=== PATIENT | female | born 1935 | race Caucasian/White ===

== ENCOUNTER 2021-06-23 07:39 | Outpatient (CLI) | payer MEDICARE, OTHER ==
--- NOTE | 2021-06-23 08:56 | Ultrasound Report ---
PROCEDURE: Duplex Ext Veins Right INDICATIONS: RIGHT LOWER EXTREMITY PAIN, RIGHT SCIATICA TECHNIQUE: Real-time imaging, as well as color and pulse Doppler interrogation, were performed of the lower extr emity deep veins from the inguinal ligament to the popliteal fossa. COMPARISON: None. FINDINGS: The deep veins are normally compressible, and free of intraluminal thrombus. Color and pu lse Doppler demonstrate normal phasic intraluminal flow. There is normal augmentation response to di stal compression maneuver. IMPRESSION: No sonographic evidence of DVT. Reviewed by: Julio Cesar Tanner MD on 06/23/2021 8:55 AM PDT Approved by: Julio Cesar Tanner MD on 06/23/2021 8:55 AM PDT Station ID: [id number]
--- NOTE | 2021-06-23 10:53 | MRI Report ---
PROCEDURE: Lumbar Spine W/O INDICATIONS: RIGHT LOWER EXTREMITY PAIN, RIGHT SCIATICA TECHNIQUE: Noncontrast sagittal T1 spin echo and T2 fast echo, sagittal STIR, axial T1 and T2 fast spin echo thr ough the lumbar spine. In cases with scoliosis, additional coronal T2 fast spin echo may be performe d. COMPARISON: None. FINDINGS: Image quality: Motion artifact is noted. Alignment and Curvature: There is normal bony alignment. Bone Marrow: Marrow is of normal overall signal. No acute vertebral body compression fractures. Spinal Cord: Conus medullaris terminates at the L1 level. Visualized cord demonstrates normal signa l and size. Paraspinous Soft Tissues: No paravertebral masses. Several bilateral renal cysts are seen, includin g a large right lateral renal cyst that measures 7 cm. T12-L1: The disc height is well-preserved. There is loss of disc signal seen. Minimal disc bulge can be seen. No neuroforaminal or central canal narrowing can be seen. L1-L2: The disc height is well-preserved. There is loss of disc signal seen. Mild disc bulge is se en, which is eccentric to the left. There is mild to moderate facet hypertrophy seen. Moderate left-s ided and minimal right-sided neuroforaminal narrowing can be seen. No central canal narrowing is seen . L2-L3: The disc height is well-preserved. There is loss of disc signal seen. Mild to moderate disc bulge is seen, which is eccentric to the left. Mild to moderate facet hypertrophy is seen. There is mild left-sided and no right-sided neuroforaminal narrowing seen. Minimal central canal narrowing is seen. L3-L4: The disc height is well-preserved. There is loss of disc signal seen. Moderate disc bulge i s seen at this level. Moderate facet hypertrophy is seen. There is moderate left-sided and moderat e to severe right-sided neuroforaminal narrowing seen. There is a mild degree of compression seen upo n the exiting right L3 nerve root. Moderate central canal narrowing is seen. L4-L5: Mild to moderate loss of disc height and disc signal can be seen. Moderate disc bulge is see n, which is eccentric to the right. There is a right foraminal disc extrusion seen, with superior lurdes ration of the disc material, as on series 701 image 10 and on series 501 image 12. At least moderate facet hypertrophy is seen. There is severe right-sided and moderate to severe left-sided neuroforamin al narrowing seen. Compression is seen upon the exiting nerve roots. Moderate to severe central joy l narrowing is seen. L5-S1: At least moderate loss of disc height and disc signal can be seen. Reactive marrow endplate changes are seen, which are hyperintense on T1-weighted and T2-weighted imaging, without significant increased STIR signal. 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 Moderate disc bulge is seen at this level. Moderate facet hypertrophy is seen. There is moderate to severe bilateral neuroforaminal narrowing seen, right worse than left. Compression is seen upon the exiting nerve roots. Minimal central canal narrowing is seen. IMPRESSION: Multiple levels of lumbar spine degenerative change are seen, which are worst at the L4- L5 level. At this level, there is a right foraminal disc extrusion, with associated severe right-side d neuroforaminal narrowing. Incidental note is made of: Bilateral renal cysts, including a 7 mm right renal cyst laterally Reviewed by: Hami Liang MD on 06/23/2021 9:52 AM [facility] Approved by: Haim Liang MD on 06/23/2021 9:52 AM [place] Station ID: [id number]
== END 2021-06-23 07:40 | disposition home or self-care (01) ==
LOC: DI 07:39
PROVIDERS: ATTEND Internal Medicine
DX: M79.661 Pain in right lower leg (principal); M47.816 Spondylosis without myelopathy or radiculopathy, lumbar region; M48.061 Spinal stenosis, lumbar region without neurogenic claudication; M51.36 Other intervertebral disc degeneration, lumbar region; M51.26 Other intervertebral disc displacement, lumbar region; M51.37 Other intervertebral disc degeneration, lumbosacral region; M48.07 Spinal stenosis, lumbosacral region; M47.817 Spondylosis without myelopathy or radiculopathy, lumbosacral region

== ENCOUNTER 2022-02-23 08:00 | Outpatient (CLI) | payer MEDICARE, OTHER ==
[2022-02-23 16:14] LABS: BASOPHILS % (AUTO) 0.2 %; EOSINOPHILS # (AUTO) 0.1 10^3/uL (0.0-0.7); EOSINOPHILS % (AUTO) 1.1 %; HCT - HEMATOCRIT 43.2 % (37.0-47.0); HGB - HEMOGLOBIN 13.7 g/dL (12.0-16.0); LYMPHOCYTES # (AUTO) 2.2 10^3/uL (1.5-3.5); LYMPHOCYTES % (AUTO) 22.4 %; MEAN CORPUSCULAR HEMOGLOBIN 31.4 pg (27.0-31.0); MEAN CORPUSCULAR HGB CONC 31.7 g/dL (32.0-36.0); MEAN CORPUSCULAR VOLUME 99.1 fL (81.0-99.0); MEAN PLATELET VOLUME 9.8 fL (7.9-10.8); MONOCYTES # (AUTO) 0.6 10^3/uL (0.0-1.0); MONOCYTES % (AUTO) 6.2 %; NEUTROPHILS # (AUTO) 6.9 10^3/uL (1.5-6.6); NEUTROPHILS % (AUTO) 69.8 %; PLT - PLATELET COUNT 246 10^3/uL (130-450); RED BLOOD COUNT 4.36 10^6/uL (4.20-5.40); RED CELL DISTRIBUTION WIDTH 12.6 % (12.0-15.0); WHITE BLOOD COUNT 9.9 x10^3/uL (4.8-10.8)
[2022-02-23 16:21] LABS: ALBUMIN 4.1 g/dL (3.2-5.5); ALBUMIN/GLOBULIN RATIO 1.6 (1.0-2.2); ALKALINE PHOSPHATASE 45 IU/L (42-121); ALT ALANINE AMINOTRANSFERASE 12 IU/L (10-60); AST ASPARTATE AMINOTRANSFERASE 13 IU/L (10-42); BILIRUBIN,TOTAL 0.5 mg/dL (0.2-1.0); BUN - BLOOD UREA NITROGEN 32 mg/dL (6-20); CALCIUM 9.9 mg/dL (8.5-10.3); CARBON DIOXIDE - CO2 27 mmol/L (21-32); CHLORIDE 104 mmol/L (101-111); CHOL/HDL RATIO 2.9 (<4.4); CHOLESTEROL 241 mg/dL; CREATININE 0.9 mg/dL (0.4-1.0); GFR - MDRD 60 (>89); GLUCOSE 86 mg/dL (70-100); HDL CHOLESTEROL 83 mg/dL; LDL CHOLESTEROL,CALCULATED 145 mg/dL; LDL/HDL RATIO 1.7 (<4.4); POTASSIUM 3.7 mmol/L (3.5-5.0); SODIUM 138 mmol/L (135-145); TOTAL PROTEIN 6.6 g/dL (6.7-8.2); TRIGLYCERIDES 64 mg/dL; VLDL CHOLESTEROL 13 mg/dL
== END 2022-02-23 23:59 | disposition home or self-care (01) ==
LOC: LAB.R 08:00
PROVIDERS: ATTEND Internal Medicine
DX: Z00.00 Encounter for general adult medical examination without abnormal findings (principal); R03.0 Elevated blood-pressure reading, without diagnosis of hypertension; H91.90 Unspecified hearing loss, unspecified ear; M79.604 Pain in right leg; G45.9 Transient cerebral ischemic attack, unspecified
CPT/HCPCS: 80053; 80061; 83721; 84443; 85025

== ENCOUNTER 2022-07-28 08:00 | Outpatient (CLI) | payer MEDICARE, OTHER | END 2022-07-28 23:58 | disposition home or self-care (01) | LOC: LAB 08:00 | PROVIDERS: ATTEND Registered Nurse | DX: R31.9 Hematuria, unspecified (principal); R82.79 Other abnormal findings on microbiological examination of urine | CPT/HCPCS: 87086 ==